=== PATIENT | male | born 1945 | race Caucasian/White ===

== ENCOUNTER 2021-09-28 09:55 | Outpatient (REF) | payer MEDICARE, OTHER, SELFPAY ==
[2021-09-28 11:45] LABS: Hematocrit 37.4 % (42.0-52.0); Hemoglobin 12.6 g/dl (14.0-18.0); Mean Corpuscular HGB Conc 33.7 g/dl (31.0-36.0); Mean Corpuscular Hemoglobin 28.3 pg (27.0-33.0); Mean Platelet Volume 10.8 fL (9.4-12.4); Platelet Count 186 X10*3/uL (160-400); Red Blood Count 4.45 X10*6/uL (4.60-5.80); Red Cell Distribution Width 13.2 % (11.0-16.0); White Blood Count 6.9 X10*3/uL (4.8-10.8)
[2021-09-28 12:13] LABS: Alanine Aminotransferase 38 U/L (0-40); Albumin Level 4.2 g/dL (3.5-5.0); Alkaline Phosphatase 65 U/L (39-117); Anion Gap 14 (12-20); Aspartate Amino Transferase 30 U/L (5-37); Bilirubin Total 0.3 mg/dL (0.0-1.0); Blood Urea Nitrogen 12 mg/dL (9-16); Calcium 9.2 mg/dL (8.4-10.2); Carbon Dioxide 23 mmol/L (22-29); Chloride 107 mmol/L (96-108); Cholesterol 156 mg/dL; Estimated Glomerular Filt Rate > 60; Glucose Fasting 174 mg/dL (60-99); HDL Cholesterol 50 mg/dL; LDL Cholesterol Calculated 72 mg/dl; Potassium 3.8 mmol/L (3.3-5.1); Sodium 140 mmol/L (135-145); Total Protein 6.7 g/dL (6.5-8.0); Triglycerides 171 mg/dL
== END 2021-09-28 09:56 | disposition home or self-care (01) ==
LOC: HO.WFDLDS 09:55
PROVIDERS: Visit Provider Hospitalist
DX: Z00.01 Encounter for general adult medical examination with abnormal findings (principal); N40.0 Benign prostatic hyperplasia without lower urinary tract symptoms
CPT/HCPCS: 36415; 80053; 80061; 84443; 85027

== ENCOUNTER 2022-04-25 11:55 | Outpatient (REF) | payer MEDICARE, SELFPAY ==
--- NOTE | ~2022-04-25 | XR_ITS ---
EXAMINATION: XR CHEST CLINICAL INFORMATION: CT COMPARISON: None TECHNIQUE: Frontal view of the chest was obtained. 1:38 PM FINDINGS: Lungs are clear. No pulmonary vascular congestion. There is no pleural effusion. The heart size is normal. The cardiac and mediastinal contours are normal. There are multilevel degenerative changes of dorsal spine. Surgical clips right upper quadrant of abdomen. Orthopedic anchor in right humeral head. XR/XR chest 1V IMPRESSION: No acute abnormality of chest.
[2022-04-25 13:33] LABS: Hemoglobin 11.3 g/dl (14.0-18.0); Mean Corpuscular HGB Conc 32.3 g/dl (31.0-36.0); Mean Corpuscular Hemoglobin 26.8 pg (27.0-33.0); Mean Corpuscular Volume 82.9 fL (80.0-98.0); Mean Platelet Volume 10.3 fL (9.4-12.4); Platelet Count 207 X10*3/uL (160-400); Red Blood Count 4.22 X10*6/uL (4.60-5.80); Red Cell Distribution Width 13.3 % (11.0-16.0); White Blood Count 6.7 X10*3/uL (4.8-10.8)
[2022-04-25 13:55] LABS: Alanine Aminotransferase 24 U/L (0-40); Albumin Level 4.2 g/dL (3.5-5.0); Alkaline Phosphatase 60 U/L (39-117); Anion Gap 14 (12-20); Aspartate Amino Transferase 25 U/L (5-37); Bilirubin Total 0.3 mg/dL (0.0-1.0); Blood Urea Nitrogen 7 mg/dL (9-16); Calcium 8.6 mg/dL (8.4-10.2); Carbon Dioxide 23 mmol/L (22-29); Chloride 105 mmol/L (96-108); Estimated Glomerular Filt Rate > 60; Glucose Fasting 156 mg/dL (60-99); Potassium 3.6 mmol/L (3.3-5.1); Sodium 138 mmol/L (135-145); Total Protein 6.6 g/dL (6.5-8.0)
[2022-04-25 14:07] LABS: B Type Natriuretic Peptide 48 pg/mL (<100)
[2022-04-25 14:21] LABS: TSH reflex Free T4 0.65 uIU/mL (0.32-4.0)
== END 2022-04-25 11:56 | disposition home or self-care (01) ==
LOC: HO.WFDLDS 11:55
PROVIDERS: Visit Provider Hospitalist
DX: I10 Essential (primary) hypertension (principal); R53.83 Other fatigue; R06.00 Dyspnea, unspecified; R06.89 Other abnormalities of breathing; E11.9 Type 2 diabetes mellitus without complications
CPT/HCPCS: 36415; 71045; 80053; 83880; 84443; 85027

== ENCOUNTER 2022-05-09 11:19 | Outpatient (REF) | payer MEDICARE, OTHER, SELFPAY ==
[2022-05-09 13:47] LABS: Hematocrit 34.5 % (42.0-52.0); Mean Corpuscular HGB Conc 31.9 g/dl (31.0-36.0); Mean Corpuscular Hemoglobin 26.1 pg (27.0-33.0); Mean Corpuscular Volume 81.9 fL (80.0-98.0); Mean Platelet Volume 10.2 fL (9.4-12.4); Platelet Count 199 X10*3/uL (160-400); Red Blood Count 4.21 X10*6/uL (4.60-5.80); Red Cell Distribution Width 13.2 % (11.0-16.0); White Blood Count 7.2 X10*3/uL (4.8-10.8)
[2022-05-12 20:56] LABS: PSA, Ultra Sensitive 1.76 ng/mL
== END 2022-05-09 11:20 | disposition home or self-care (01) ==
LOC: HO.WFDLDS 11:19
PROVIDERS: Visit Provider Hospitalist
DX: Z12.5 Encounter for screening for malignant neoplasm of prostate (principal); N40.0 Benign prostatic hyperplasia without lower urinary tract symptoms; R53.83 Other fatigue; D64.9 Anemia, unspecified
CPT/HCPCS: 36415; 84153; 85027

== ENCOUNTER 2022-05-10 12:29 | Outpatient (REF) | payer MEDICARE, OTHER, SELFPAY ==
[2022-05-10 14:46] LABS: Folate 16.9 ng/mL (> or = 4.0); Vitamin B12 199 pg/mL (200-900)
[2022-05-10 16:04] LABS: Iron 28 mcg/dL (45-160); Percent Iron Saturation 7 % (15-50); Total Iron Binding Capacity 409 mcg/dL (228-428); Unsaturated Iron Binding 381 ug/dL
== END 2022-05-10 12:30 | disposition home or self-care (01) ==
LOC: HO.WFDLDS 12:29
PROVIDERS: Visit Provider Hospitalist
DX: D64.9 Anemia, unspecified (principal)
CPT/HCPCS: 36415; 82607; 82746; 83540

== ENCOUNTER 2022-06-16 14:50 | Outpatient (REF) | payer MEDICARE, OTHER, SELFPAY ==
--- NOTE | 2022-06-16 16:46 | PFT_ITS ---
SPIROMETRY ONLY INDICATION: Dyspnea. SPIROMETRY: FEV1 to FVC of 94% with an FEV1 of 2.33 L, which is 88% predicted, an FVC of 2.47 L, which is 70% predicted. There was a significant response to bronchodilators noted. COMPARISONS: None. INTERPRETATION: No obstructive ventilatory defect. The patient did have a significant response to bronchodilators noted. There may be a component of restrictive lung disease that will be better appreciated on a formal pulmonary function study. Clinical correlation warranted. MD KAMERON Arrieta/MODMaria M / [id number] MTDD
== END 2022-06-16 14:51 | disposition home or self-care (01) ==
LOC: HO.RESP 14:50
PROVIDERS: PCP Hospitalist; Visit Provider Hospitalist
DX: R06.00 Dyspnea, unspecified (principal); R06.89 Other abnormalities of breathing; R53.83 Other fatigue
CPT/HCPCS: 94060

== ENCOUNTER 2022-12-01 09:23 | Outpatient (REF) | payer MEDICARE, OTHER, SELFPAY ==
[2022-12-01 11:02] LABS: Hematocrit 38.1 % (42.0-52.0); Hemoglobin 12.5 g/dl (14.0-18.0); Mean Corpuscular HGB Conc 32.8 g/dl (31.0-36.0); Mean Corpuscular Hemoglobin 27.8 pg (27.0-33.0); Mean Corpuscular Volume 84.7 fL (80.0-98.0); Mean Platelet Volume 10.4 fL (9.4-12.4); Platelet Count 180 X10*3/uL (160-400); Red Cell Distribution Width 13.2 % (11.0-16.0); White Blood Count 7.1 X10*3/uL (4.8-10.8)
[2022-12-01 11:39] LABS: Alanine Aminotransferase 28 U/L (0-40); Albumin Level 4.1 g/dL (3.5-5.0); Alkaline Phosphatase 57 U/L (39-117); Anion Gap 15 (12-20); Aspartate Amino Transferase 27 U/L (5-37); Bilirubin Total 0.6 mg/dL (0.0-1.0); Blood Urea Nitrogen 11 mg/dL (9-16); Calcium 9.1 mg/dL (8.4-10.2); Carbon Dioxide 24 mmol/L (22-29); Chloride 107 mmol/L (96-108); Cholesterol 161 mg/dL; Estimated Glomerular Filt Rate > 60; Glucose Fasting 162 mg/dL (60-99); HDL Cholesterol 52 mg/dL; LDL Cholesterol Calculated 83 mg/dl; Sodium 142 mmol/L (135-145); Total Protein 6.3 g/dL (6.5-8.0); Triglycerides 133 mg/dL
[2022-12-01 11:59] LABS: TSH reflex Free T4 1.02 uIU/mL (0.32-4.0)
[2022-12-01 12:00] LABS: Appearance Urine Cloudy; Color Urine Yellow; Glucose Urine UA 100 mg/dL (Negative); Leukocyte Esterase Urine Moderate (2+) (Negative); Nitrite Urine Negative (Negative); PH 5.5 (5.0-9.0); Specific Gravity - Urine 1.025 (1.005-1.025); UMIC TRIGGER UA YES; Urine Blood Negative (Negative); Urine Ketones Negative (Negative); Urine Protein Trace mg/dL (Neg-Trace)
[2022-12-01 12:54] LABS: Bacteria Urine None Seen (None Seen); Hyaline Casts Urine 0-2 /LPF (0-2); RBC Urine 0-2 /HPF (0-2); WBC Urine >50 /HPF (0-5)
== END 2022-12-01 09:24 | disposition home or self-care (01) ==
LOC: HO.WFDLDS 09:23
PROVIDERS: Visit Provider Hospitalist
DX: Z00.00 Encounter for general adult medical examination without abnormal findings (principal)
CPT/HCPCS: 36415; 80053; 80061; 81001; 81003; 84443; 85027

== ENCOUNTER 2024-01-22 11:59 | Day surgery (SDC) | payer MEDICARE, SELFPAY ==
[2024-01-15 13:12] VITALS: BMI 27.9
--- NOTE | 2024-01-19 09:25 | HO.ANESPROP2 ---
Documented by User: Mya Fox NP 01/19/24 09:25 HPI - Anesthesia Eval Consult details Narrative: 78yo M for Colonoscopy Anesthesia Pre-Procedure Meds Is the patient on any of the following meds?: Any other SGL-1 drugs or drugs that delay gastric emptying (Jardiance) PMFSH Active Problems Active Problems: All Active Problems Dry skin (Acute) Normal physical exam (Acute) Anemia (Acute) Dyspnea and respiratory abnormalities (Acute) Fatigue (Acute) BPH (benign prostatic hyperplasia) (Acute) HTN (hypertension) (Acute) Statin prophylaxis indicated (Acute) Uncomplicated type 2 diabetes mellitus (Acute) Chronic GERD (Acute) Abnormal physical evaluation (Acute) Past Medical History Medical History (Updated 01/15/24 @ 13:11 by Karly Lopez RN) Elevated cholesterol Renal calculi Diabetes BPH (benign prostatic hyperplasia) GERD (gastroesophageal reflux disease) HTN (hypertension) Surgical History Surgical History History of repair of rotator cuff History of tonsillectomy History of cholecystectomy Social History Social History Housing: House Patient Tobacco Use Status: Never used Tobacco e-Cigarette/Vaping Use: Never Used Second Hand Smoke Exposure: No Use of substances other than those prescribed or required for medical reasons: No Are you DNR?: No Advance Directives: No Advance Directives Information Provided: Yes service: Yes Current occupational status: retired Current occupational exposures/hazards: No Cognitive needs: No Hearing needs: No Vision needs: No Meds Allergies Allergy/AdvReac Type Severity Reaction Status Date / Time lidocaine [From XYLOCAINE] Allergy Unknown HIVES,SOB Verified 11/29/22 12:14 Home Medications ?Medication ?Instructions ?Recorded ?Confirmed ?Last Taken ?Type aspirin 81 mg tablet,delayed 81 mg PO DAILY 09/28/21 01/15/24 Unknown History release (Adult Low Dose Aspirin) losartan 50 mg tablet 50 mg PO DAILY 09/28/21 01/15/24 Unknown History metformin 1,000 mg tablet 1,000 mg PO BID 09/28/21 01/15/24 Unknown History omeprazole 20 mg capsule,delayed 20 mg PO DAILY 09/28/21 01/15/24 01/22/24 History release pravastatin 20 mg tablet 20 mg PO DAILY 09/28/21 01/15/24 Unknown History tamsulosin 0.4 mg capsule 0.4 mg PO DAILY 09/28/21 01/15/24 Unknown History empagliflozin 25 mg tablet 25 mg PO DAILY 11/29/22 01/15/24 01/18/24 History Exam Height,Weight and Vital Signs: Height 5 ft 6 in Weight 78.471 kg Assessment and Plan Assessment Anesthesia Assessment: Chart Reviewed Documented by User: Pb Mercado MD 01/22/24 14:23 HPI - Anesthesia Eval Anesthesia Pre-Procedure Meds If Yes to any meds - educate patient: Pt education - increased risk of aspiration PMFSH Past Medical History Medical History (Updated 01/15/24 @ 13:11 by Karly Lopez RN) Elevated cholesterol Renal calculi Diabetes BPH (benign prostatic hyperplasia) GERD (gastroesophageal reflux disease) HTN (hypertension) Family History Family history of problems with anesthesia: No Surgical History Surgical History History of repair of rotator cuff History of tonsillectomy History of cholecystectomy History of Problems with Anesthesia: No Social History Social History Housing: House Patient Tobacco Use Status: Never used Tobacco e-Cigarette/Vaping Use: Never Used Second Hand Smoke Exposure: No Use of substances other than those prescribed or required for medical reasons: No Are you DNR?: No Advance Directives: No Advance Directives Information Provided: Yes service: Yes Current occupational status: retired Current occupational exposures/hazards: No Cognitive needs: No Hearing needs: No Vision needs: No Meds Allergies Allergy/AdvReac Type Severity Reaction Status Date / Time lidocaine [From XYLOCAINE] Allergy Unknown HIVES,SOB Verified 11/29/22 12:14 Home Medications ?Medication ?Instructions ?Recorded ?Confirmed ?Last Taken ?Type aspirin 81 mg tablet,delayed 81 mg PO DAILY 09/28/21 01/15/24 Unknown History release (Adult Low Dose Aspirin) losartan 50 mg tablet 50 mg PO DAILY 09/28/21 01/15/24 Unknown History metformin 1,000 mg tablet 1,000 mg PO BID 09/28/21 01/15/24 Unknown History omeprazole 20 mg capsule,delayed 20 mg PO DAILY 09/28/21 01/15/24 01/22/24 History release pravastatin 20 mg tablet 20 mg PO DAILY 09/28/21 01/15/24 Unknown History tamsulosin 0.4 mg capsule 0.4 mg PO DAILY 09/28/21 01/15/24 Unknown History empagliflozin 25 mg tablet 25 mg PO DAILY 11/29/22 01/15/24 01/18/24 History Exam Airway Mallampati Class: III TM Dist: <=3cm Neck ROM: Full Partial: Upper Loose/Missing/Broken Teeth: Yes (poor and multiple broken) Heart: rrr Lungs: cta Assessment and Plan Assessment Anesthesia Assessment: Anesthesia Plan Discussed Final Anesthetic Review Family History of Problems with Anesthesia: No History of Problems with Anesthesia: No NPO: Yes ASA Class: III Final Preanesthetic Review: No Changes in Pt Med Stat, Meds/Allgs Chart Reviewed, Consent Obtained/Reviewed and Anes Risks/Benef Reviewed Patient Risk: Intermediate Procedure Risk: Intermediate Anesthetic Plan Anesthetic Plan: MAC: Disposition: Standard PACU
[2024-01-22 13:31] VITALS: BP 170/68; PULSE 61; RESP 16; TEMP 36.5; O2SAT 98
[2024-01-22 13:46] LABS: Glucose, Whole Blood 157 mg/dL (60-115)
[2024-01-22] MEDS: Lactated Ringers 1,000 ML 100 ML IVCONT (13:48)
[2024-01-22 16:00] VITALS: BP 117/60; PULSE 63; RESP 17; TEMP 36; O2SAT 93
--- NOTE | 2024-01-22 16:12 | P.BOP_ITS ---
Brief Operative Note Date of Service: 01/22/24 Pre-op diagnosis: Screening Post-op diagnosis: other (Colon polyps) Procedure: Colonoscopy to the cecum with hot snare polypectomy of cecal polyp, and bx/removal of polyp at 60cm Surgeon: Negro Lopez MD Anesthesia: MAC Was an Envelope Stamping Machine Operator used for this Procedure?: No Estimated blood loss (mL): 2.0 Pathology: other (A. Polyp at 60cm B. Cecal polyp) Condition: stable Disposition: PACU
[2024-01-22 16:15] VITALS: BP 137/58; PULSE 64; RESP 18; O2SAT 96
[2024-01-22 16:30] VITALS: BP 143/60; PULSE 64; RESP 15; TEMP 36.1; O2SAT 98
--- NOTE | 2024-01-23 03:03 | OP_ITS ---
DATE OF SERVICE: 01/22/2024 SURGEON: Negro Lopez MD INDICATIONS: Patient presents for evaluation of personal history of tubular adenoma of the colon and colorectal cancer screening. Full consent obtained from him for this, including risks of bleeding and perforation. PREOPERATIVE DIAGNOSIS: Colorectal cancer screening and personal history of tubular adenoma of the colon. POSTOPERATIVE DIAGNOSIS: Colorectal cancer screening and personal history of tubular adenoma of the colon, colon polyps, diverticulosis, and internal hemorrhoids. PROCEDURE PERFORMED: Colonoscopy to the cecum with hot snare polypectomy x1, and biopsy and removal of polyp. ESTIMATED BLOOD LOSS: COMPLICATIONS: ANESTHESIA: Medication used; monitored anesthesia care. ASSISTANTS: SPECIMENS: DESCRIPTION OF PROCEDURE: The patient was placed in the left lateral decubitus position. The digital rectal exam revealed no abnormalities. The Olympus video pediatric colonoscope was entered into the rectum and advanced easily to the cecum. Once in the cecum, I did identify cecal pouch with appendiceal orifice and a normal-appearing ileocecal valve. There was transillumination of light deep in the right lower quadrant. The entire cecum was well visualized. In the cecum, there was a flat, but raised approximately 10 to 12 mm grossly adenomatous polyp, which was removed by hot snare polypectomy and recovered by suction. The polypectomy site appeared clean, without any sign of residual polyp nor bleeding. The remainder of the cecum appeared normal. The scope was then slowly withdrawn assessing all mucosal surfaces carefully. Preparation was excellent. At 60 cm, there was an approximately 3 or 4 mm polyp, which was biopsied and completely removed with cold biopsy forceps. I did not visualize any other polyps, colitis, nor angiodysplasia. There was a mild amount of sigmoid diverticulosis. In the rectum, scope was retroflexed visualizing internal hemorrhoids, but no other pathology. The rectal mucosa appeared normal. Scope was straightened and withdrawn from the patient. He tolerated the procedure well and was returned to recovery area in stable condition. IMPRESSION: 1. Colon polyps. 2. Diverticulosis. 3. Internal hemorrhoids. PLAN: The results of the pathology will be checked. Given these findings and his age, I do not think he will need any further screening colonoscopies in the future. He was advised not to use any aspirin and NSAIDs for 1 week. He will otherwise see me on a p.r.n. basis. MD ANTOINETTE Vyas/RANCHO / [id number] MTDJose Armando
== END 2024-01-22 16:31 | disposition home or self-care (01) ==
PROVIDERS: Visit Provider Internal Medicine
PROC: 0DJD8ZZ Inspection of Lower Intestinal Tract, Via Natural or Artificial Opening Endoscopic (ICD-10-PCS; CPT 45378; principal; 2024-01-22 14:50)
DX: Z12.11 Encounter for screening for malignant neoplasm of colon (principal); Z86.010 Personal history of colon polyps; D12.0 Benign neoplasm of cecum; D12.4 Benign neoplasm of descending colon; K57.30 Diverticulosis of large intestine without perforation or abscess without bleeding; K64.8 Other hemorrhoids; K21.9 Gastro-esophageal reflux disease without esophagitis; I10 Essential (primary) hypertension; E78.5 Hyperlipidemia, unspecified; E11.9 Type 2 diabetes mellitus without complications; Z87.442 Personal history of urinary calculi; Z79.82 Long term (current) use of aspirin; Z79.84 Long term (current) use of oral hypoglycemic drugs; Z79.899 Other long term (current) drug therapy; Z90.49 Acquired absence of other specified parts of digestive tract
CPT/HCPCS: 45385; 45380; 82947; 88305; J2704